=== PATIENT | female | born 1975 | race Caucasian/White ===

== ENCOUNTER 2020-05-20 19:32 | Emergency (ER) | payer OTHER ==
[~2020-05-20 19:32] MED LIST: IBUPROFEN800 MG PO; TRAMADOL HCL50 MG PO
== END 2020-05-20 20:18 | disposition home or self-care (01) ==
LOC: ER1 19:32
DX: G62.9 Polyneuropathy, unspecified (principal); R00.2 Palpitations; J44.9 Chronic obstructive pulmonary disease, unspecified; F17.210 Nicotine dependence, cigarettes, uncomplicated; Z88.0 Allergy status to penicillin; Z86.19 Personal history of other infectious and parasitic diseases
CPT/HCPCS: 93242; 99284

== ENCOUNTER → 2020-11-23 | Outpatient (CLI) | payer OTHER | LOC: KOH-I 15:47 | DX: M25.561 Pain in right knee (principal); M25.571 Pain in right ankle and joints of right foot; M25.551 Pain in right hip; M54.50 Low back pain, unspecified; M16.11 Unilateral primary osteoarthritis, right hip; M51.36 Other intervertebral disc degeneration, lumbar region; K59.00 Constipation, unspecified | CPT/HCPCS: 72100; 73502; 73562; 73610 ==

== ENCOUNTER 2020-12-15 12:28 | Emergency (ER) | payer OTHER ==
[2020-12-15 14:34] LABS: HEMOGLOBIN 14.4 gm/dl (12.3-15.3); RED BLOOD COUNT 4.2 M/UL (4.00-5.10)
[2020-12-15 14:49] LABS: BUN/CREATININE RATIO 19 (0-10)
== END 2020-12-15 17:35 | disposition home or self-care (01) ==
LOC: ER1 12:28 → EDBD 13:21 → ER1 17:35
PROVIDERS: Physician Assistant
DX: S06.9X9A Unspecified intracranial injury with loss of consciousness of unspecified duration, initial encounter (principal); S39.012A Strain of muscle, fascia and tendon of lower back, initial encounter; S40.012A Contusion of left shoulder, initial encounter; S00.93XA Contusion of unspecified part of head, initial encounter; F19.10 Other psychoactive substance abuse, uncomplicated; J44.9 Chronic obstructive pulmonary disease, unspecified; I10 Essential (primary) hypertension; F17.210 Nicotine dependence, cigarettes, uncomplicated; Z88.0 Allergy status to penicillin; V49.50XA Passenger injured in collision with unspecified motor vehicles in traffic accident, initial encounter; Y92.410 Unspecified street and highway as the place of occurrence of the external cause
CPT/HCPCS: 70450; 71045; 72125; 72128; 72131; 72170; 73030; 80053; 82550; 82553; 83874; 84484; 84703; 85025; 90471; 90715; 93005; 96374; 99285; J2310

== ENCOUNTER 2020-12-24 15:01 | Emergency (ER) | payer OTHER | END 2020-12-24 15:46 | disposition left against medical advice (07) | LOC: ER1 15:01 → EDBD 15:01 → ER1 15:46 | DX: Z53.21 Procedure and treatment not carried out due to patient leaving prior to being seen by health care provider (principal) ==

== ENCOUNTER 2021-07-26 20:15 | Emergency (ER) | payer OTHER | END 2021-07-26 20:44 | disposition left against medical advice (07) | LOC: ER1 20:15 | DX: Z53.21 Procedure and treatment not carried out due to patient leaving prior to being seen by health care provider (principal) ==